=== PATIENT | male | born 1980 | race Caucasian/White ===

== ENCOUNTER 2018-10-10 01:49 | Emergency (ER) | payer OTHER ==
--- NOTE | 2018-10-10 01:59 | EDPHY ---
H & P Time Seen by Provider: 10/10/18 01:57 HPI/ROS: CC: fever and chills x 2 days HPI: This 38-year-old male with no significant past medical history presents to emergency department today complaining of fever and chills over the last 2 days. He also had a slight sore throat, runny nose, non-productive cough, and sneezing. He has had body aches and today he has had a throbbing headache that he rates 8/10. His fever was 101.8 last evening. He has been taking TheraFlu and Advil. His last dose of their fluids at 10:30 p.m. And his last dose of Advil was at 4:00 p.m. He only had a bowl of soup to eat yesterday. He has felt a little dizzy. He has no stiff neck or rashes. He has been traveling a lot and also has had contact with ill people at his place of employment. He did not get a flu vaccination this year. REVIEW OF SYSTEMS: Constitutional: See HPI. Eyes: No discharge. ENT: Right ear pain. Respiratory: Mild shortness of breath, no wheezing. Cardiac: No chest pain, no palpitations. Gastrointestinal: No abdominal pain, no vomiting. Genitourinary: No hematuria. Musculoskeletal: See HPI. No calf pain or swelling. Skin: No rashes. Neurological: See HPI. Source: Patient - Personal History Tetanus Vaccine Date: WITHIN 10 YRS - Medical/Surgical History PMH: Past medical history denied Past surgical history right knee surgery Family history denied No known drug allergies No prescription medications Primary care provider Dr. Mirza Gross Other PMH: KNEE SURG - Social History Smoking Status: Former smoker Additional Social History: . One child. No tobacco products. Daily ETOH. Marijuana products "not really". - Physical Exam Exam: General Appearance: Alert, mod distress. Eyes: Pupils equal and round no pallor or injection. ENT, Mouth: Mucous membranes are moist. Right TM erythematous. Left TM clear. Posterior oropharynx with erythema. No exudate. Respiratory: There are no retractions, lungs are clear to auscultation. Cardiovascular: Regular rate and rhythm. Gastrointestinal: Abdomen is soft and nontender, no masses, bowel sounds normal. Neurological: Awake and alert, sensory and motor exams grossly normal. Skin: Warm and dry, no rashes. Musculoskeletal: Neck is supple, nontender. Mild posterior cervical adenopathy on the right. Extremities are symmetrical, full range of motion. No warmth, cords or erythema. Psychiatric: Patient is oriented X 3, there is no agitation. DIFFERENTIAL DIAGNOSIS: After history and physical exam differential diagnosis was considered for but not limited to in and no particular order: Influenza, strep pharyngitis, viral pharyngitis, viral syndrome, otitis media, pneumonia Constitutional: Initial Vital Signs Temperature (C) 101.5 F H 10/10/18 02:02 Heart Rate 93 10/10/18 02:02 Respiratory Rate 16 10/10/18 02:02 Blood Pressure 136/89 H 10/10/18 02:02 O2 Sat (%) 96 10/10/18 02:02 O2 Delivery Mode Room Air Allergies/Adverse Reactions: No Known Allergies Allergy (Verified 10/10/18 02:02) Home Medications: Medication Instructions Recorded Azithromycin [Zithromax] 250 mg PO DAILY #6 tab 10/10/18 Oseltamivir Phosphate [Tamiflu] 75 mg PO BID 5 Days #10 capsule 10/10/18 Medical Decision Making ED Course/Re-evaluation: The patient was seen and examined. Vital signs reviewed. He was given a L of IV fluids as well as Toradol 30 mg IV push, acetaminophen 650 mg orally and the 1st dose of Tamiflu for his positive influenza A test. Rapid strep negative. He was given a prescription for the remainder of the 5 day course of Tamiflu and a prescription for Zithromax should his ear pain get worse. He should get rechecked if his symptoms (other than the ear pain) worsen. - Data Points Medications Given: Discontinued Medications Sodium Chloride (Ns) 1,000 mls @ 0 mls/hr IV ONCE ONE; Wide Open PRN Reason: Protocol Stop: 10/10/18 02:18 Last Admin: 10/10/18 02:28 Dose: 1,000 mls Ketorolac Tromethamine (Toradol) 30 mg IVP EDNOW ONE Stop: 10/10/18 02:19 Last Admin: 10/10/18 02:28 Dose: 30 mg Departure - Departure Disposition: Home, Routine, Self-Care Clinical Impression: Influenza A, Otitis media of right ear Condition: Good Instructions: Influenza (ED), Ear Infection (ED), Hydrocodone/Acetaminophen ( By mouth) Additional Instructions: Rest. Drink plenty of fluids. Acetaminophen or Ibuprofen for pain or fever as directed. Recheck if symptoms worsen as discussed. Referrals: Mirza Gross MD [Medical Doctor] - As per Instructions Prescriptions: Azithromycin [Zithromax] 250 mg PO DAILY #6 tab Oseltamivir Phosphate [Tamiflu] 75 mg PO BID 5 Days #10 capsule
[2018-10-10] MEDS ORDERED: NS 1,000 ML IV ONE (02:17)
[2018-10-10] MEDS ORDERED: KETOROLAC 30 MG/1 ML SDV IVP ONE (02:18)
[2018-10-10] MEDS ORDERED: OSELTAMIVIR PHOSPHATE 75 MG CAP PO ONE (02:36)
[2018-10-10] MEDS ORDERED: ACETAMINOPHEN 325 MG TAB PO ONE (02:41)
[2018-10-10] MEDS ORDERED: HYDROCOD/APAP 5/325 PREPACK#6 BTL TAKEHOME ONE (02:58)
[2018-10-10 03:23] VITALS: BP 126/77
== END 2018-10-10 03:20 | disposition home or self-care (01) ==
LOC: CED 01:49
DX: J09.X2 Influenza due to identified novel influenza A virus with other respiratory manifestations (principal); H66.91 Otitis media, unspecified, right ear; E86.9 Volume depletion, unspecified
CPT/HCPCS: 96374; J1885